=== PATIENT | female | born 1980 | race Two or more races ===

== ENCOUNTER 2016-04-18 21:18 | Emergency (ER) | payer MEDICAID ==
[2016-04-18] MEDS ORDERED: ALBUTEROL NEB 2.5 MG/3 ML VIAL.NEB NEB ONE (22:01)
[2016-04-18] MEDS ORDERED: PREDNISONE 20 MG TABLET ONE (22:43)
[2016-04-18] MEDS ORDERED: IBUPROFEN 600 MG TABLET ONE (22:58)
--- NOTE | 2016-04-19 07:38 | RAD ---
Exam: Two-view chest COMPARISON: None INDICATION: Cough, shortness of breath and chest pain for one day. FINDINGS: PA and lateral views of the chest were obtained. Cardiac silhouette is within normal limits. Lungs are well-inflated. There is no focal airspace disease or pleural effusion. 6 mm nodule is present within the right midlung zone. No additional pulmonary nodules are identified. Bones the chest wall within normal limits. IMPRESSION: 1. 6 mm nodule within the right midlung zone which is of uncertain chronicity given lack of comparisons. This is statistically likely be benign in this age group. It is also denser than adjacent rib suggesting could be calcified reflecting benignity. Follow-up chest radiograph in 6 months could be obtained to ensure stability. 2. No acute pulmonary process.
== END 2016-04-18 23:08 | disposition home or self-care (01) ==
LOC: ED 21:18
DX: J20.9 Acute bronchitis, unspecified (principal); J45.909 Unspecified asthma, uncomplicated; I10 Essential (primary) hypertension; E78.00 Pure hypercholesterolemia, unspecified
CPT/HCPCS: 71020; 94640; 94664; 99284; 99283; A9270; J7512

== ENCOUNTER 2016-08-02 12:34 | Inpatient (IN) | payer MEDICAID ==
[2016-08-02] MEDS ORDERED: IOPAMIDOL 370 (76%) 100 ML VIAL IV ONE (12:35)
[2016-08-02] MEDS ORDERED: HYDROMORPHONE HCL 1 MG/ML SYRINGE ONE (13:53)
[2016-08-02] MEDS ORDERED: ONDANSETRON 4 MG/2ML 2 ML VIAL ONE (13:53)
[2016-08-02 14:13] LABS: ABSOLUTE NEUTROPHIL COUNT 7.9 K/mm3 (1.8-7.7); BASO # 0.1 K/mm3 (0.0-0.2); BASO % 0.7 % (0.2-1.0); EOS # 0.4 (0.0-0.5); EOS % 3.5 % (0.9-2.9); HEMATOCRIT 40.6 % (37.0-47.0); HEMOGLOBIN 12.8 gm/l (12.0-16.0); IMM NEUT% 0.3 % (0-1); MEAN CELL VOLUME 82.5 fl (81.0-99.0); MEAN CORPUSCULAR HGB CONC 31.5 g/dl (33.0-37.0); MEAN PLATELET VOLUME 9.5 fl (7.4-10.4); MONO # 0.6 (0.0-0.8); MONO % 5.4 % (4-12); NEUT % 72.1 % (43-75); PLATELET COUNT 455 K/mm3 (130-400); RED CELL DISTRIBUTION WIDTH 12.5 % (11.5-14.5)
[2016-08-02 14:28] LABS: ALB/GLOB RATIO 1.3 (>1.0); ALBUMIN 4.6 gm/dL (3.5-5.7); CALCIUM 9.5 mg/dL (8.6-10.3)
[2016-08-02 16:20] LABS: HCG,QUALITATIVE URINE NEGATIVE
[2016-08-02 16:23] LABS: SPECIFIC GRAVITY 1.025 (1.001-1.030); URINE BILIRUBIN NEGATIVE (NEGATIVE); URINE BLOOD 1+ (NEGATIVE); URINE GLUCOSE (UA) NEGATIVE (NEGATIVE); URINE LEUKOCYTE ESTERASE TRACE (NEGATIVE); URINE NITRITE NEGATIVE (NEGATIVE); URINE PROTEIN NEGATIVE (NEGATIVE); URINE UROBILINOGEN NORMAL (0-1 mg/dl)
[2016-08-02 16:28] LABS: URINE APPEARANCE CLEAR; URINE BACTERIA FEW; URINE COLOR YELLOW; URINE EPITHELIAL CELLS FEW /hpf; URINE RBC 0-1 /hpf
[2016-08-02] MEDS ORDERED: METOCLOPRAMIDE HCL 5 MG/ML 2ML VIAL ONE (16:48)
--- NOTE | 2016-08-02 16:55 | CT ---
Exam Type: ABD/PELVIS W/ CON Date and Time: 08/02/2016 3:12 PM Clinical information: Left-sided abdominal pain with nausea and diarrhea. Comparison: None Technique: Contiguous axial 4 mm images were obtained from the lung bases through the pelvis after the uneventful IV administration of 100 cc of Isovue-370. Sagittal and coronal reformations with high resolution lung algorithm images were also obtained at this time. CT DI: 18.2 DLP 970.0 FINDINGS: Lung base : Dependent and atelectatic changes are present at the lung bases. Calcified granuloma is also present, measuring 7 mm on axial image 2 within the right middle lobe. Visualized heart:There is no pericardial effusion. LIVER: Mild fatty infiltration to the liver with possible sparing in the gallbladder fossa. BILE DUCTS: normal caliber. GALLBLADDER: No calcified gallstones. Normal caliber wall. PANCREAS: within normal limits. SPLEEN: within normal limits. ADRENALS: within normal limits. KIDNEYS: Delayed nephrogram is noted on the left with moderate perinephric stranding. Moderate to severe hydronephrosis. Obstructing 4 mm calculus is noted at the left UPJ. Right-sided cysts are present. No evidence of nonobstructive uropathy. Stomach and small BOWEL: Normal caliber. Large bowel: Air and stool are noted within the large bowel. Appendix is normal. LYMPH NODES: No enlarged mesenteric lymph nodes. PERITONEUM: no ascites or free air, no fluid collection. VESSELS: within normal limits RETROPERITONEUM: within normal limits. ABDOMINAL WALL: within normal limits. Bladder: Normal. Uterus and adnexa: Multiple cysts/follicles are noted on the left. Largest measures approximately 5.1 x 3.6 cm on axial image 90. BONES: Slight retrolisthesis of L4 on 5. Otherwise normal. IMPRESSION: Moderate to severe left hydronephrosis with delayed nephrogram and perinephric stranding as above. Findings may relate just to the obstruction though underlying infection cannot be excluded. Other incidental findings as above. Findings were called to Dr. Parham at approximately 1650 hours on 08/02/2016.
[2016-08-02] MEDS ORDERED: KETOROLAC TROMETHAMINE 30 MG/ML 1 ML VIAL ONE (18:20)
[2016-08-02] MEDS ORDERED: BISACODYL 10 MG SUP PR PRN (19:24)
[2016-08-02] MEDS ORDERED: BISACODYL 5 MG TABLET.EC PO PRN (19:24)
[2016-08-02] MEDS ORDERED: TAMSULOSIN HCL 0.4 MG CAPSULE.DR PO ONE (19:24)
[2016-08-02] MEDS ORDERED: MENTHOL/CETYLPYRD 1 EACH LOZENGE PO PRN (19:24)
[2016-08-02] MEDS ORDERED: PROMETHAZINE HCL 12.5 MG in SODIUM CHLORIDE 0.9% 50 ML IV PRN (19:24)
[2016-08-02] MEDS ORDERED: HYDROMORPHONE HCL 2 MG/ML SYRINGE IV PRN (19:24)
[2016-08-02] MEDS ORDERED: SODIUM CHLORIDE 0.9% 100 ML IV PRN (19:24)
[2016-08-02] MEDS ORDERED: ONDANSETRON 4 MG/2ML 2 ML VIAL IV PRN (19:24)
[2016-08-02] MEDS ORDERED: MAGNESIUM HYDROXIDE 30 ML UDCUP PO PRN (19:24)
[2016-08-02] MEDS ORDERED: BLISTEX LIPSTICK 1 EACH TP PRN (19:24)
[2016-08-02 19:30] VITALS: BMI 32.4
[2016-08-02] MEDS: SODIUM CHLORIDE 0.9% 1,000 ML IV SCH (20:29)
[2016-08-02] MEDS: DOCUSATE SODIUM 100 MG CAPSULE PO SCH (21:51)
[2016-08-03] MEDS: SODIUM CHLORIDE 0.9% 1,000 ML IV SCH ×4 (04:55→20:41)
[2016-08-03] MEDS: ACETAMINOPHEN 325 MG TABLET PO PRN ×2 (05:16→20:37)
[2016-08-03] MEDS ORDERED: IBUPROFEN 200 MG TABLET PO ONE (06:16)
[2016-08-03] MEDS ORDERED: KETOROLAC TROMETHAMINE 15 MG/ML VIAL IV ONE (06:20)
[2016-08-03 06:37] LABS: ABSOLUTE NEUTROPHIL COUNT 14.7 K/mm3 (1.8-7.7); BASO % 0.2 % (0.2-1.0); HEMATOCRIT 34.9 % (37.0-47.0); HEMOGLOBIN 11.4 gm/l (12.0-16.0); IMM NEUT # 0.1 K/mm3 (0-0.2); IMM NEUT% 0.7 % (0-1); LYMPH # 0.7 (1.0-4.8); LYMPH % 4.5 % (15-45); MEAN CELL VOLUME 81.5 fl (81.0-99.0); MEAN CORPUSCULAR HEMOGLOBIN 26.6 pg (27.0-31.0); MEAN CORPUSCULAR HGB CONC 32.7 g/dl (33.0-37.0); MEAN PLATELET VOLUME 9.6 fl (7.4-10.4); MONO # 0.6 (0.0-0.8); MONO % 3.8 % (4-12); NEUT % 90.8 % (43-75); PLATELET COUNT 350 K/mm3 (130-400); RED CELL DISTRIBUTION WIDTH 12.7 % (11.5-14.5)
[2016-08-03 06:52] LABS: CALCIUM 8.4 mg/dL (8.6-10.3)
[2016-08-03 07:50] LABS: BAND 10 % (0-10); BASOPHIL 0 % (0-1); EOSINOPHIL 0 % (1-3); LYMPHOCYTE 3 % (15-45); MONOCYTE 2 % (4-12); NEUTROPHILS 85 % (43-75); PLATELET ESTIMATE NORMAL (NORMAL); TOTAL CELLS COUNTED 100
[2016-08-03] MEDS ORDERED: LACTATED RINGERS 500 ML IV ONE (08:14)
[2016-08-03] MEDS ORDERED: POTASSIUM CHLORIDE 20 MEQ in SODIUM CHLORIDE 0.9% 250 ML IV ONE (08:23)
--- NOTE | 2016-08-03 08:25 | PDOC43 ---
- Subjective Chief Complaint: left flank/LUQ abd pain with N/V Subjective: Reports Pain Tolerable, Reports Fever (up to 102 this am), Denies Shortness of Breath, Denies Cough, Denies Chest Pain, Denies Vomiting - Objective Vital Signs Temperature 102.3 F 08/03/16 07:57 Pulse Rate 116 08/03/16 07:57 Respiratory Rate 16 08/03/16 07:57 Blood Pressure 93/50 08/03/16 07:57 O2 Saturation by Pulse Oximetry 94 08/03/16 07:57 Oxygen Delivery Method Room Air Oxygen Flow Rate 0 Intake and Output 08/02/16 08/03/16 08/04/16 06:59 06:59 06:59 Intake Total 1337 Output Total 1200 Balance 137 General: Alert, Oriented x3, Cooperative, No Acute Distress HEENT: Mucous membr. moist/pink Lungs: Clear to Auscultation Bilaterally Cardiovascular: Regular Rate and Rhythm Abdomen: Soft, Normal Bowel Sounds, Non-Distended, Other (pain location unchanged in LUQ region), No Tenderness Extremities: No Edema Laboratory 08/03/16 06:30 08/03/16 05:10 08/03/16 08/03/16 06:30 05:10 MCH 26.6 L MCHC 32.7 L Estimated GFR 47 L Calcium 8.4 L Current Medications: Current meds reviewed in EMR. - Problems: Assessment/Plan (1) Ureterolithiasis Status: AcuteAssessment/Plan: with obstruction at UPJ despite dimensions of only 4mm. With fever, tachycardia and increasing leukocytosis, patient meets criteria for SIRS or severe sepsis if infectious source is identified. Concerned about occult urinary source of infection obscured by obstruction, awaiting repeat UA , urine Cx and CXR - will start Zosyn, fluid bolus, urology consult, anticipate need for stent, patient is NPO (2) Asthma Qualifiers: Asthma severity: mild intermittent Status: ChronicAssessment/Plan: stable (3) Hypokalemia Status: AcuteAssessment/Plan: mild - will give rider VTE Prophylaxis: mech measures Disposition: home in 1-3 days depending on Cx and response to abx
[2016-08-03] MEDS: PIPERACILLIN-TAZO PREMIX BAG 3.375 G in Premix (D5W) 50 ml 1 EACH IV SCH ×3 (08:36→20:38)
[2016-08-03] MEDS ORDERED: PUMP TUBING ONE (08:41)
[2016-08-03 08:46] LABS: SPECIFIC GRAVITY 1.025 (1.001-1.030); URINE BILIRUBIN NEGATIVE (NEGATIVE); URINE BLOOD 1+ (NEGATIVE); URINE GLUCOSE (UA) NEGATIVE (NEGATIVE); URINE LEUKOCYTE ESTERASE NEGATIVE (NEGATIVE); URINE NITRITE NEGATIVE (NEGATIVE); URINE PROTEIN TRACE (NEGATIVE); URINE UROBILINOGEN NORMAL (0-1 mg/dl)
[2016-08-03] MEDS: DOCUSATE SODIUM 100 MG CAPSULE PO SCH ×2 (08:46→21:00)
[2016-08-03 08:55] LABS: URINE APPEARANCE CLEAR; URINE COLOR YELLOW
[2016-08-03 08:58] LABS: URINE BACTERIA RARE
[2016-08-03] MEDS ORDERED: HYDROMORPHONE HCL 0.5 MG/0.5 ML SYRINGE IV PRN (09:01)
[2016-08-03] MEDS ORDERED: HYDROMORPHONE HCL 1 MG/ML SYRINGE IV PRN ×2 (09:02→13:25)
--- NOTE | 2016-08-03 09:50 | RAD ---
CHEST - 2 VIEWS COMPARISON: Chest 2 views, 04/18/2016 HISTORY: Fever. FINDINGS: Views: Frontal and lateral chest Lungs: No change. 6 mm calcified granuloma in the lower half of the right lung. Heart and vessels: Normal Trachea and bronchi: Normal Mediastinum and harmeet: Normal Costophrenic sulci: Normal Chest wall and bones: Normal. Upper abdomen: Moderate left hydronephrosis IMPRESSION: 1. No change. 6 mm calcified granuloma in lower half of the right lung. 2. Moderate left hydronephrosis.
--- NOTE | 2016-08-03 10:08 | HP ---
Elyssa Nguyen [id number] DATE OF ADMISSION: 08/02/2016 CHIEF COMPLAINT: Left upper quadrant abdominal pain. HISTORY OF PRESENT ILLNESS: This patient is a 35-year-old female without significant chronic medical problems who presented with complaints of acute onset pain in the left upper quadrant starting around 10:30 this morning. The pain was severe to a 10/10 and associated with nausea and some diarrhea. The pain was persistent. She arrived in the emergency department around 12:40 in the afternoon. Workup showed evidence of a left ureterolithiasis with moderate hydronephrosis on the left side. She continued to have intractable pain despite narcotics along with nausea and was referred to the hospitalist service for admission for hydration and assistance in passing the stone. REVIEW OF SYSTEMS: Negative for any fevers or chills. She has had no recent upper respiratory symptoms. She denies cough, dyspnea, wheezing, chest pain, shortness of breath or palpitations. She has had the nausea with emesis associated with the pain. She had some diarrhea symptoms earlier, but this is now resolved. She has had no hematemesis, no hematochezia. No headaches, fainting, blackouts, or seizures. She has not noticed any urinary symptoms. PAST MEDICAL HISTORY: Negative for prior history of kidney stones. She has some history of mild asthma and some allergic rhinitis. She has been monitored for high cholesterol, but is not on any medications for that. She has no other chronic medical problems. PAST SURGICAL HISTORY: Significant for cyst removed from the right wrist, prior section, and a prior ovarian cyst removal. ALLERGIES: No known drug allergies. CURRENT MEDICATIONS: Consist of: 1. Zyrtec 10 mg daily as needed for allergies. 2. Albuterol meter dose inhaled 1 to 2 puffs every 4 hours as needed for wheezing. 3. Multivitamin with minerals once daily. FAMILY HISTORY: Significant for both parents with diabetes. SOCIAL HISTORY: She has three grown children. She is a nonsmoker. Denies alcohol, tobacco, or illicit drug use. She lives at home with her . Her primary care provider is Dr. Nkechi De La Cruz at [facility]. PHYSICAL EXAMINATION: VITAL SIGNS: Temperature 98.4, pulse 74, blood pressure 144/73, respirations 14, oxygen saturation are 96% on room air. Body mass index is 32.4, weight is 88.4 kg. GENERAL: This is a slightly obese female in mild respiratory distress. HEENT: Unremarkable. NECK: Supple without lymphadenopathy or thyromegaly. LUNGS: Clear to auscultation bilaterally. CARDIOVASCULAR: Reveals a regular rate and rhythm without a murmur. ABDOMEN: Reveals no distention, positive bowel sounds. No tenderness. No organomegaly is present. CT of the abdomen and pelvis shows evidence of moderate to severe left hydronephrosis and some perinephric stranding with what appears to be an obstructing 4 mm calculus at the left UPJ region. LABORATORY STUDIES: Included a CBC with a white count of 11, hemoglobin if 12.8, platelet count is 455,000. Chemistry profile is unremarkable. Glucose is 102. Urinalysis showed 1+ ketones, 1+ blood, 6-10 white cells, 0-1 red cells, few bacteria. test is negative. ASSESSMENT: The patient has left ureterolithiasis with obstruction and nausea and vomiting. She also has left upper quadrant abdominal pain likely due to the above, diarrhea suspected due to a sympathetic reaction from the stimulation of the nerve fibers in the left ureter and should resolve as the stone is past. PLAN: Admission to the med/surg unit for aggressive hydration for pain relief and monitoring for passage of the stone. JOB: [id number] CC: Dr. Nkechi De La Cruz
[2016-08-03] MEDS ORDERED: LIDOCAINE 2% (MULTI DOSE) 10 ML VIAL ONE (11:24)
[2016-08-03] MEDS ORDERED: FENTANYL 250 MCG/5 ML AMP ONE (11:24)
[2016-08-03] MEDS ORDERED: SUCCINYLCHOLINE CHL 20 MG/ML DOSE ONE (11:24)
[2016-08-03] MEDS ORDERED: MIDAZOLAM HCL 1 MG/ML 2ML VIAL ONE (11:24)
[2016-08-03] MEDS ORDERED: DEXAMETHASONE SOD PHOS 4 MG/1 ML VIAL ONE (11:24)
[2016-08-03] MEDS ORDERED: ONDANSETRON 4 MG/2ML 2 ML VIAL ONE (11:24)
[2016-08-03] MEDS ORDERED: PROPOFOL 20 ML IV ONE (11:24)
[2016-08-03] MEDS ORDERED: IOPAMIDOL 300 (61%) 30 ML SDV ONE (11:58)
[2016-08-03] MEDS ORDERED: SODIUM CHLORIDE 0.9% 0 ML ONE (11:58)
[2016-08-03] MEDS ORDERED: MEPERIDINE 25 MG/ML SYRINGE IV PRN (13:25)
[2016-08-03] MEDS ORDERED: FENTANYL 100 MCG/2 ML VIAL IV PRN (13:25)
[2016-08-03] MEDS ORDERED: PROMETHAZINE HCL 25 MG/ML VIAL IM PRN (13:25)
[2016-08-03] MEDS ORDERED: ONDANSETRON 4 MG/2ML 2 ML VIAL IV PRN (13:25)
[2016-08-03] MEDS ORDERED: LACTATED RINGERS 1,000 ML IV SCH (13:30)
--- NOTE | 2016-08-03 14:02 | RAD ---
KATHARINE for CATHETER/TUBE PLCMT COMPARISON: CT abdomen and pelvis, 08/02/2016 HISTORY: 35-year-old female with a left ureteral stent placed for treatment of left hydronephrosis. FINDINGS: Fluoroscopy time: 190.6 seconds Views: 2 spot views of the left ureteral stent Stent: Satisfactory positioning of the proximal and distal ends of the left ureteral stent. IMPRESSION: Documentation of fluoroscopic assistance provided to Dr. Grewal for satisfactory placement of a left ureteral stent.
[2016-08-03] MEDS ORDERED: FENTANYL 100 MCG/2 ML VIAL ONE (14:20)
--- NOTE | 2016-08-03 15:46 | OP ---
SHU EVANS [id number] DATE OF OPERATION: August 03, 2016 SURGEON: Mark Grewal M.D. TENTER FRAME OPERATOR: None. ANESTHESIA: General. PREOPERATIVE DIAGNOSES: 1. Left ureteropelvic junction calculus with obstruction. 2. Signs of urosepsis. POSTOPERATIVE DIAGNOSES: 1. Left ureteropelvic junction calculus with obstruction. 2. Signs of urosepsis. PROCEDURE: 1. CYSTOSCOPY. 2. PLACE OF A LEFT URETERAL STENT. SPECIMENS: Urine sample collected from left renal pelvis. INDICATIONS: The patient is a 35-year-old woman who presented to the emergency room last evening with left-sided flank pain, nausea, vomiting, and a 4 mm calculus at the left ureteropelvic junction with obstruction. Although her pain was reasonably well controlled, she has been showing signs of potential septicemia although her original urine sample was not suggestive of infection. She is demonstrating fevers, chills, and a mildly elevated white blood cell count. She is being taken for stent placement in order to facilitate drainage of the left upper tract. FINDINGS: Endoscopically the urethra, ureteral orifices and bladder were normal. On fluoroscopy we could still see contrast within the dilated left collecting system to the level of the ureteropelvic junction. Urine obtained behind the obstructing stone was turbid. PROCEDURE: The patient was identified and brought to the operating room where general anesthesia was induced supine. Then she was placed in a dorsal lithotomy position. The genital region was prepared and draped sterilely. A 21 K[place] rigid cystoscope was introduced with saline as an irrigant. Findings are reported above. We first introduced a floppy tip wire which easily passed the ureteropelvic junction into the renal pelvis. Over this we passed an end hole catheter, removed the wire, and obtained the urine from the left renal pelvis for urinalysis and culture. Then, the wire was replaced and the end hole catheter removed. Over the wire we passed first a 22 cm Polaris type stent which proved too short, and then we ultimately replaced this with a 24 cm Polaris type stent. After its position was confirmed endoscopically, the scope was withdrawn. Estimated blood less minimal. Patient tolerated the procedure well and will be taken in stable condition to the post anesthesia room. cc: Mark Grewal M.D. Nkechi De La Cruz M.D. [facility]
[2016-08-04] MEDS: PIPERACILLIN-TAZO PREMIX BAG 3.375 G in Premix (D5W) 50 ml 1 EACH IV SCH ×4 (01:47→19:57)
[2016-08-04] MEDS: ACETAMINOPHEN 325 MG TABLET PO PRN ×2 (04:05→19:13)
[2016-08-04] MEDS: SODIUM CHLORIDE 0.9% 1,000 ML IV SCH (06:03)
--- NOTE | 2016-08-04 10:00 | PDOC43 ---
- Subjective Chief Complaint: left flank/LUQ abd pain with N/V Patient reports feeling better. Hasn't walked much, didn't know she was allowed to. Feels a little puffy overall, and notes some bladder irritation symptoms. No vomiting. Did eat some. No fevers, feeling better overall. - Objective Vital Signs Temperature 98.2 F 08/04/16 06:59 Pulse Rate 66 08/04/16 06:59 Respiratory Rate 16 08/04/16 06:59 Blood Pressure 124/70 08/04/16 06:59 O2 Saturation by Pulse Oximetry 97 08/04/16 06:59 Oxygen Delivery Method Room Air Oxygen Flow Rate 0 Vital Signs Last 12 Hours Temp Pulse Resp BP Pulse Ox 08/04/16 06:59 98.2 F 66 16 124/70 97 08/04/16 05:30 18 08/04/16 04:00 98.4 F 82 18 126/70 96 08/04/16 00:00 98.2 F 84 18 132/73 96 08/03/16 22:30 20 Intake and Output 08/02/16 08/03/16 08/04/16 23:59 23:59 23:59 Intake Total 3601 1842 Output Total 2625 1300 Balance 976 542 General: Alert, Cooperative, No Acute Distress HEENT: Atraumatic Lungs: Clear to Auscultation Bilaterally, Normal Air Movement Cardiovascular: Regular Rate and Rhythm Abdomen: Soft, Normal Bowel Sounds, Non-Distended, No Tenderness, No Rebounding Extremities: Other (trace puffiness throughout.) Skin: Normal Color, Warm, Dry, Intact Neurological: Normal Speech Psych/Mental Status: Normal Affect, Normal Mood Laboratory 08/03/16 06:30 08/03/16 05:10 urine cultures pending. Current Medications: Current meds reviewed in EMR. Active Medications Acetaminophen (Tylenol) 650 mg PO Q6H PRN PRN Reason: Pain or Temperature > 100.5 F Last Admin: 08/04/16 04:05 Dose: 650 mg Benzocaine/Menthol (Cepacol) 1 each PO PRN PRN PRN Reason: Sore Throat Bisacodyl (Dulcolax) 10 mg HI DAILY PRN PRN Reason: Constipation Bisacodyl (Dulcolax) 5 mg PO DAILY PRN PRN Reason: Constipation Docusate Sodium (Colace) 100 mg PO BID [facility] Last Admin: 08/03/16 21:00 Dose: Not Given Hydromorphone HCl (Dilaudid) 0.5 - 2 mg IV Q2H PRN PRN Reason: Pain Last Admin: 08/02/16 21:51 Dose: 1 mg Hydromorphone HCl (Dilaudid) 0.5 - 2 mg IV Q2H PRN PRN Reason: Pain Hydromorphone HCl (Dilaudid) 0.5 - 2 mg IV Q2H PRN PRN Reason: Pain Sodium Chloride (Sodium Chloride 0.9%) 100 mls @ 25 mls/hr IV PRN PRN PRN Reason: Flush Sodium Chloride (Sodium Chloride 0.9%) 1,000 mls @ 125 mls/hr IV .Q8H [facility] Last Admin: 08/04/16 06:03 Dose: 125 mls/hr Promethazine HCl 12.5 mg/ (Sodium Chloride) 50.5 mls @ 200 mls/hr IV Q4H PRN PRN Reason: Nausea/Vomiting Last Admin: 08/02/16 23:07 Dose: 200 mls/hr Piperacillin/Tazobactam/Dextrose 3.375 g/ Premix (D5W) 50 ml 50 mls @ 100 mls/ hr IV Q6H [facility] Last Admin: 08/04/16 07:06 Dose: 100 mls/hr Magnesium Hydroxide (Milk Of Magnesia) 30 ml PO DAILY PRN PRN Reason: Constipation Ondansetron HCl (Zofran) 4 mg IV Q4H PRN PRN Reason: Nausea/Vomiting Last Admin: 08/02/16 21:51 Dose: 4 mg Petrolatum/Paraffin/Mineral Oil (Blistex) 1 each TP PRN PRN PRN Reason: Dry and/or chapped lips Sodium Chloride (Normal Saline 10ml Flush) 10 - 50 ml IV PRN PRN PRN Reason: IV Flush Last Admin: 08/02/16 20:33 Dose: 10 ml Sodium Chloride (Normal Saline 10ml Flush) 10 ml IV Q8HR [facility] Last Admin: 08/04/16 01:27 Dose: Not Given - Problems: Assessment/Plan (1) Pyelonephritis Status: AcuteAssessment/Plan: Attributed to obstructive stone; now removed. Severe sepsis POA, now clinically improved. On Zosyn, awaiting culture. (2) Ureterolithiasis Status: AcuteAssessment/Plan: with obstruction at UPJ despite dimensions of only 4mm, now s/p removal and stent placement. With fever (now improved), tachycardia (improved) and leukocytosis (not checked today), patient meets criteria for severe sepsis - present on admission, source is felt to be pyelonephritis. On Zosyn, appreciate urology consult, with stone removal and stent placement; (3) Hypokalemia Status: AcuteAssessment/Plan: mild - anticipate oral supplement. (4) Asthma Qualifiers: Asthma severity: mild intermittent Status: ChronicAssessment/Plan: stable. Continue home regimen. VTE Prophylaxis: mech measures Disposition: home in 1-3 days depending on C&S, response to abx Additional Comments: HCG neg (urine)
[2016-08-04] MEDS ORDERED: IBUPROFEN 200 MG TABLET PO PRN (10:01)
[2016-08-04] MEDS: DOCUSATE SODIUM 100 MG CAPSULE PO SCH ×2 (10:01→20:40)
[2016-08-04] MEDS ORDERED: HYDROCODONE/ACETAMINOPHEN 5/325MG TABLET PO PRN (10:01)
[2016-08-04 15:12] LABS: CHLAMYDIA BD Negative (Negative); N.GONORRHOEAE BD Negative (Negative); SOURCE Urine (())
[2016-08-05] MEDS: PIPERACILLIN-TAZO PREMIX BAG 3.375 G in Premix (D5W) 50 ml 1 EACH IV SCH ×2 (01:43→08:15)
[2016-08-05 06:13] LABS: ABSOLUTE NEUTROPHIL COUNT 6.6 K/mm3 (1.8-7.7); BASO # 0.1 K/mm3 (0.0-0.2); BASO % 0.5 % (0.2-1.0); EOS # 0.1 (0.0-0.5); EOS % 1.4 % (0.9-2.9); HEMATOCRIT 29.6 % (37.0-47.0); HEMOGLOBIN 9.3 gm/l (12.0-16.0); IMM NEUT% 0.4 % (0-1); LYMPH # 1.9 (1.0-4.8); LYMPH % 19.7 % (15-45); MEAN CELL VOLUME 82.7 fl (81.0-99.0); MEAN CORPUSCULAR HGB CONC 31.4 g/dl (33.0-37.0); MEAN PLATELET VOLUME 9.4 fl (7.4-10.4); MONO # 0.8 (0.0-0.8); PLATELET COUNT 267 K/mm3 (130-400); RED CELL DISTRIBUTION WIDTH 13.1 % (11.5-14.5)
[2016-08-05 06:27] LABS: CALCIUM 8.3 mg/dL (8.6-10.3)
[2016-08-05] MEDS: DOCUSATE SODIUM 100 MG CAPSULE PO SCH (08:16)
--- NOTE | 2016-08-05 08:33 | PDOC43 ---
- Subjective Chief Complaint: left flank/LUQ abd pain with N/V RN reports pt feeling better, had mild LLQ pain, 3/10, but declined PRN pain med. Ordered breakfast, did fine with dinner yesterday. Walked fine, independent. Pt interested in going home, only minimal pain. No c/o. - Objective Vital Signs Temperature 98.4 F 08/05/16 07:25 Pulse Rate 62 08/05/16 07:25 Respiratory Rate 18 08/05/16 07:34 Blood Pressure 125/69 08/05/16 07:25 O2 Saturation by Pulse Oximetry 97 08/05/16 07:25 Oxygen Delivery Method Room Air Oxygen Flow Rate 0 Vital Signs Last 12 Hours Temp Pulse Resp BP Pulse Ox 08/05/16 07:34 18 08/05/16 07:25 98.4 F 62 18 125/69 97 08/05/16 04:00 97.8 F 76 16 129/76 99 08/05/16 02:00 16 08/05/16 00:00 97.8 F 76 16 127/58 98 Intake and Output 08/03/16 08/04/16 08/05/16 23:59 23:59 23:59 Intake Total 3601 3843 440 Output Total 2625 1950 875 Balance 976 1893 -435 General: Alert, Cooperative, No Acute Distress HEENT: Atraumatic Lungs: Clear to Auscultation Bilaterally, Normal Air Movement Cardiovascular: Regular Rate and Rhythm Abdomen: Soft, Tenderness (very minimal lower abd discomfort), Normal Bowel Sounds, Non-Distended Extremities: No Edema Neurological: Normal Speech Psych/Mental Status: Normal Mood Laboratory 08/05/16 05:30 08/05/16 05:30 08/05/16 05:30 RBC 3.58 L MCH 26.0 L MCHC 31.4 L Calcium 8.3 L Culture shows Staph saprophyticus Current Medications: Current meds reviewed in EMR. Active Medications Acetaminophen (Tylenol) 650 mg PO Q6H PRN PRN Reason: Pain or Temperature > 100.5 F Last Admin: 08/04/16 19:13 Dose: 650 mg Acetaminophen/Hydrocodone Bitart ([place] 5/325) 1 tab PO Q4H PRN PRN Reason: Pain Benzocaine/Menthol (Cepacol) 1 each PO PRN PRN PRN Reason: Sore Throat Bisacodyl (Dulcolax) 10 mg SD DAILY PRN PRN Reason: Constipation Bisacodyl (Dulcolax) 5 mg PO DAILY PRN PRN Reason: Constipation Docusate Sodium (Colace) 100 mg PO BID [facility] Last Admin: 08/05/16 08:16 Dose: 100 mg Sodium Chloride (Sodium Chloride 0.9%) 100 mls @ 25 mls/hr IV PRN PRN PRN Reason: Flush Promethazine HCl 12.5 mg/ (Sodium Chloride) 50.5 mls @ 200 mls/hr IV Q4H PRN PRN Reason: Nausea/Vomiting Last Admin: 08/02/16 23:07 Dose: 200 mls/hr Piperacillin/Tazobactam/Dextrose 3.375 g/ Premix (D5W) 50 ml 50 mls @ 100 mls/ hr IV Q6H [facility] Last Admin: 08/05/16 08:15 Dose: 100 mls/hr Ibuprofen (Advil) 400 mg PO QID PRN PRN Reason: Pain or Temperature > 100.5 F Magnesium Hydroxide (Milk Of Magnesia) 30 ml PO DAILY PRN PRN Reason: Constipation Ondansetron HCl (Zofran) 4 mg IV Q4H PRN PRN Reason: Nausea/Vomiting Last Admin: 08/02/16 21:51 Dose: 4 mg Petrolatum/Paraffin/Mineral Oil (Blistex) 1 each TP PRN PRN PRN Reason: Dry and/or chapped lips Sodium Chloride (Normal Saline 10ml Flush) 10 - 50 ml IV PRN PRN PRN Reason: IV Flush Last Admin: 08/02/16 20:33 Dose: 10 ml Sodium Chloride (Normal Saline 10ml Flush) 10 ml IV Q8HR [facility] Last Admin: 08/05/16 08:16 Dose: 10 ml - Problems: Assessment/Plan (1) Pyelonephritis Status: AcuteAssessment/Plan: Attributed to obstructive stone; now removed. Severe sepsis POA, now clinically improved. On Zosyn, urine culture shows Staph saprophyticus, should respond to Cipro, TMZ/ SMP or nitrofurantoin. Anticipate DC on cipro with follow up with Dr Grewal (2) Ureterolithiasis Status: AcuteAssessment/Plan: with obstruction at UPJ despite dimensions of only 4mm, now s/p removal and stent placement. With fever (now improved), tachycardia (improved) and leukocytosis (not checked today), patient meets criteria for severe sepsis - present on admission, source is felt to be pyelonephritis. On Zosyn, appreciate urology consult, with stone removal and stent placement; (3) Hypokalemia Status: AcuteAssessment/Plan: mild - on oral supplement. (4) Asthma Qualifiers: Asthma severity: mild intermittent Status: ChronicAssessment/Plan: stable. Continue home regimen. VTE Prophylaxis: mech measures. Ambulating well. Disposition: home anticipated today, if continues to tolerate orals well. Additional Comments: HCG neg (urine)
[2016-08-05 11:03] VITALS: BP 133/78
--- NOTE | 2016-08-05 12:14 | DS ---
Elyssa Olivares [id number] DATE OF ADMISSION: 08/02/2016 DATE OF DISCHARGE: 08/05/2016 DISCHARGE DIAGNOSES: 1. Pyelonephritis with ureterolithiasis and culture of Staphylococcus saprophyticus on culture. 2. Mild hypokalemia from vomiting and loose stools associated with illness. 3. History of asthma, stable. REASON FOR ADMISSION: The patient is a 35-year-old female without significant urologic history who presented regarding left upper quadrant pain starting 10:30 the morning of admission, 08/02/2016. She presented to the emergency room in the early afternoon and evaluation showed left ureterolithiasis with moderate hydronephrosis and she persisted to have intractable pain despite narcotics and was referred to the hospitalist service for admission for hydration and assistance in passing the stone. Her admission labs showed a white blood cell count of 11.0, hemoglobin 12.8. Her comprehensive metabolic panel was unremarkable except for a glucose of 102 and a globulin of 3.6. Urinalysis showed 6 to 10 white cells, 1+ ketones, 1+ blood, specific gravity of 1.025, negative HCG, few bacteria. Gen probe was negative performed on urine specimen. Her CT had shown moderate to severe left hydronephrosis with delayed nephrogram and perinephric stranding. Findings may be related to obstruction although, underlying infection cannot be excluded. Multiple cysts and follicles were noted on the left ovary, the largest was 5.1 x 3.6 cm. The stone was 4 mm at the left ureteropelvic junction. With a fever to 102 and increasing leukocytosis patient was felt to meet criteria for SIRS or severe sepsis and so Zosyn was started and a urology consult was obtained. Dr. Grewal was consulted and patient underwent cystoscopy and placement of left ureteral stent by Dr. Grewal 08/03/2016. The Zosyn was continued and culture returned 08/05/2016 showing Staphylococcus saprophyticus. Sensitive testing was not done as this is generally responsive to Nitrofurantoin, Bactrim, fluoroquinolone. Patient had a good improvement after stent placement and stone removal. She remained afebrile after 08/03/2016 and pain resolved by 08/05/2016. The culture results had returned, vital signs remained stable, and she was eager for discharge. DISCHARGE MEDICATONS: Anticipated to be discharged to home medicines: 1. Albuterol 1 to 2 puffs inhaled every 4 hours as needed. 2. Zyrtec 10 mg by mouth daily as needed. 3. Multivitamin 1 by mouth daily. 4. Ciprofloxacin 500 mg by mouth twice daily x2 weeks is given to her. FOLLOW UP: She has follow up with Dr. Grewal for stent removal in the next 7 to 10 days. Has an appointment with Dr. Nkechi De La Cruz 08/13/2016 at 1:20 p.m. ADDITIONAL DIAGNOSES: 1. Mild anemia attributed to fluid resuscitation with hemoglobin 9.3 on 08/05/2016. 2. She did have mild hypokalemia and received potassium supplementation, it was 3.5 on 08/05/2016. JOB: [id number] CC: Dr. Uri De La Cruz
== END 2016-08-05 11:13 | disposition home or self-care (01) | DRG 693 ==
LOC: ED 12:34 → MS 18:17 → OBSVTOIN 19:24
PROVIDERS: ADMIT Family Medicine; ATTEND Family Medicine
PROC: 0T7D8DZ Dilation of Urethra with Intraluminal Device, Via Natural or Artificial Opening Endoscopic (ICD-10-PCS; principal; 2016-08-03)
DX: N20.1 Calculus of ureter (principal); R65.20 Severe sepsis without septic shock; B95.8 Unspecified staphylococcus as the cause of diseases classified elsewhere; E87.6 Hypokalemia; J45.909 Unspecified asthma, uncomplicated; D64.9 Anemia, unspecified